=== PATIENT | male | born 1980 | race Caucasian/White ===

== ENCOUNTER 2017-05-28 10:07 | Emergency (ER) | payer OTHER ==
--- NOTE | 2017-05-28 10:54 | EDM.PDOC ---
ED HPI GENERAL MEDICAL PROBLEM - General Chief Complaint: Upper Extremity Injury/Pain Stated Complaint: RIGHT ARM PAIN Time Seen by Provider: 05/28/17 10:50 Source of Information: Reports: Patient History Limitations: Reports: No Limitations - History of Present Illness INITIAL COMMENTS - FREE TEXT/NARRATIVE: 36-year-old male presents the ED with yeast slightly painful linear rash in his right upper extremity that developed over the last 24 hours. States he appreciated pain in the distribution of his medial biceps and arm yesterday and last evening surgeon noted a bruise and then slightly red rash in a linear distribution extending from the antecubital fossa to the axilla. States he has pain that radiates in his forearm also down to his thumb. He has no known open injuries to his hand or wrist area in the last 2 weeks. She works with his hands all the time and often has a neck or 2. He is asymptomatic in terms that he has no fever chills nausea or vomiting. There is very tender to touch. Become worse over the last 12 hours. Onset: Gradual (Started yesterday.) Onset Date: 05/27/17 Duration: Hour(s): Location: Reports: Upper Extremity, Right (Right medial arm.) Quality: Reports: Ache, Burning, Throbbing (Mild) Severity: Moderate Improves with: Reports: None Worsens with: Reports: None Context: Denies: Activity, Exercise, Lifting, Sick Contact, Trauma, Other Associated Symptoms: Reports: No Other Symptoms Treatments [employer]: Reports: Other (see below) (None.) Right Arm Pain Score (Numeric/FACES): 3 - Related Data Allergies Allergy/AdvReac Type Severity Reaction Status Date / Time No Known Allergies Allergy Verified 05/28/17 10:17 Home Meds: Home Meds Diclofenac Sodium [Voltaren] 50 mg PO BID #12 tab.ec 05/28/17 [Rx] Minocycline HCl 100 mg PO BID #20 capsule 05/28/17 [Rx] Past Medical History - Past Health History Medical/Surgical History: Denies Medical/Surgical History Social & Family History - Family History Family Medical History: Noncontributory - Tobacco Use Smoking Status *Q: Former Smoker Used Tobacco, but Quit: Yes Month Tobacco Last Used: 12/28/15 - Recreational Drug Use Recreational Drug Use: No - Living Situation & Occupation Occupation: Employed Review of Systems - Review of Systems Review Of Systems: See Below Constitutional: Reports: No Symptoms Eyes: Reports: No Symptoms Ears: Reports: No Symptoms Nose: Reports: No Symptoms Mouth/Throat: Reports: No Symptoms Respiratory: Reports: No Symptoms Cardiovascular: Reports: No Symptoms GI/Abdominal: Reports: No Symptoms Genitourinary: Reports: No Symptoms Musculoskeletal: Reports: No Symptoms Skin: Reports: No Symptoms Neurological: Reports: No Symptoms Psychiatric: Reports: No Symptoms ED EXAM, GENERAL - Physical Exam Exam: See Below Exam Limited By: No Limitations General Appearance: Alert, WD/WN, Anxious (Mildly anxious.) Respiratory/Chest: No Respiratory Distress, Lungs Clear, Normal Breath Sounds Extremities: Other (Patient has an area of tenderness and slight erythema along the distribution of the right cephalic vein. He is to start in the antecubital fossa. It is mildly tender throughout its distribution. Tenderness is localized only to this area. Diagnosis is superficial thrombophlebitis) Neurological: Alert, CN II-XII Intact, Normal Cognition Psychiatric: Normal Affect, Normal Mood Skin Exam: Warm, Dry, Intact, Normal Color, No Rash Course - Vital Signs Last Recorded V/S: Last Vital Signs Temp 36.4 C 05/28/17 10:13 Pulse 72 05/28/17 10:13 Resp 16 05/28/17 10:13 BP 120/91 H 05/28/17 10:13 Pulse Ox 100 05/28/17 10:13 - Radiology Interpretation Free Text/Narrative:: 36-year-old male presents to the ED with a thrombophlebitis involving the cephalic vein right medial arm. There is quite a significant inflammation with erythema and palpable tenderness. He denies intravenous drug abuse. It seems to start in the antecubital fossa however. Plan Voltaren 50 mg twice a day for 8 days and doxycycline 100 mg twice daily for 10 days. Follow-up if not markedly improved in 72 hours time. Departure - Departure Time of Disposition: 10:50 Disposition: Home, Self-Care 01 Condition: Fair Clinical Impression: Superficial thrombophlebitis of arm Qualifiers: Laterality: right Qualified Code(s): I80.8 - Phlebitis and thrombophlebitis of other sites - Discharge Information Prescriptions: Diclofenac Sodium [Voltaren] 50 mg PO BID #12 tab.ec Minocycline HCl 100 mg PO BID #20 capsule Referrals: PCP,None [Primary Care Provider] - Forms: ED Department Discharge Additional Instructions: Evaluation the emergency room today in regards to evidence of phlebitis in the superficial vein of the right upper extremity. It extends from the elbow crease up to the armpit on the right side. This indicates that there is inflammation within the vein indicating we call thrombophlebitis. This can sometimes also be caused by a low-grade infection. Treatment is therefore warm compresses to the area for 20 minutes out of every 4 hours when able. Use of anti-inflammatory Voltaren 50 mg twice daily for the next 6 days to reduce inflammation and some pain. Antibiotic is to be doxycycline 100 mg twice daily for the next 10 days to clear up any infection. Expect marked improvement over the next 48-72 hours.
== END 2017-05-28 11:10 | disposition home or self-care (01) ==
LOC: JD.ED 10:07
DX: I80.8 Phlebitis and thrombophlebitis of other sites (principal); Z87.891 Personal history of nicotine dependence
CPT/HCPCS: 99283